=== PATIENT | female | born 1990 | race American Indian/Alaskan Native ===

== ENCOUNTER 2021-07-01 18:49 | Outpatient (CLI) | payer OTHER ==
[2021-07-01] MEDS ORDERED: LACTATED RINGERS 500 ML IV ONE (19:54)
[2021-07-01] MEDS: ACETAMINOPHEN 500 MG TAB PO ONE (20:18)
[2021-07-01 21:12] VITALS: BP 104/62
--- NOTE | 2021-07-01 22:58 | Ultrasound Report ---
Limited obstetrical ultrasound INDICATION: 23 week , placental assessment COMPARISON: None FINDINGS: Intrauterine fetus is seen in a breech position. Cardiac activity was documented with heart rate of 149 bpm. Normal amniotic fluid volume is seen qualitatively. Placenta is anterior and free of the internal cervical os. No evidence of placental abruption is seen. Signer Name: Ramo oPrras MD Signed: 07/01/2021 10:54 PM Workstation Name: [id number]
== END 2021-07-01 23:58 | disposition home or self-care (01) ==
LOC: TRG 18:49 → APU 18:52 → TRG 23:58
PROVIDERS: ATTEND Obstetrics & Gynecology
DX: O26.892 Other specified pregnancy related conditions, second trimester (principal); V89.2XXA Person injured in unspecified motor-vehicle accident, traffic, initial encounter; Z3A.23 23 weeks gestation of pregnancy
CPT/HCPCS: 59025; 76815